=== PATIENT | female | born 1955 | race Caucasian/White ===

== ENCOUNTER 2017-01-22 10:30 | Inpatient (IN) | payer OTHER ==
--- NOTE | ~2017-01-22 | HP ---
History And Physical [place] [id number] [facility] [place]. [address] NAME: OSCAR VACA : 55 STATUS : ADM IN [facility]#: [id number] AGE: 61 ADM/REG DATE : 01/22/17 MR#: [id number] REPORT SERV DATE: 01/22/17 DICTATED BY: TAMMIE KELLY DATE: 01/22/17 REPORT STATUS : Draft TRANSCRIBED BY: MODMoses DATE: 01/22/17 DATE OF ADMISSION: 01/22/2017 PRIMARY CARE PHYSICIAN: Krystyna Ivory NP, in [facility] in [place]. HISTORY OF PRESENT ILLNESS: This is a 61-year-old female, who comes in for abdominal pain. The patient has a lot of family members with respiratory symptoms and got some herself. She was having nonproductive cough, dizziness, chills, and sweats, but no fever. She then felt her ear was stopped off and she went to [facility]. She was diagnosed with bronchitis and it is unclear whether she was given Augmentin because as the patient said that, but in the chart it was Levaquin. The patient took that for about two days, then she started having some nausea, vomiting, and abdominal pain. Sometimes she would vomit, sometimes she would not and abdominal pain was intermittent. This lasted for about two weeks with an average of about once a day. She tried to keep her p.o. intake and has not lost weight. There is no hematemesis or coffee-ground emesis. However, for the last three days, the patient started having some diarrhea, which she cannot control and it was several times during the day. It was watery, brownish, without any melena or hematochezia. However, earlier today, the patient, during one of her bowel movements had wiped her bottom and there was blood. She was then brought to the emergency room. The patient denies any previous abdominal diseases and she was also given steroids in the initial part of her course, which she completed. The patient then got a blood work, which shows a white count of 21 and a CAT scan, which showed acute diverticulitis of the descending and sigmoid colon. No suspicious fluid collection or free air. Aortic stent graft in place. Unchanged from previous studies. Diffuse fatty infiltration of the liver. Benign left renal cyst. The patient was then referred for admission. She denied any near syncopal or syncopal episode. No rashes. No joint pains. She admitted to some weakness and fatigue. REVIEW OF SYSTEMS: The rest of the 14-point review of systems is negative, except as above. PAST MEDICAL HISTORY: Includes diabetes, hypertension, PAD with stents, left breast cancer with a lumpectomy, aortitis, cervical cancer status post hysterectomy in 1988, appendectomy, cholecystectomy, oophorectomy, elective vaginal fistula repair, abdominal aortic aneurysm repair. ALLERGIES: SHE IS ALLERGIC TO MORPHINE, WHICH SHE STOPS BREATHING, BUT CAN TAKE CODEINE. MEDICATIONS: Include albuterol, QVAR, Lopid, Levaquin, Zestril, metformin, multivitamin, and nitroglycerin. FAMILY HISTORY: Mom with throat cancer and cervical cancer. Dad with an WI. Diabetes runs in the family. SOCIAL HISTORY: The patient started smoking at the age of 18, used to smoke more than two packs a day, now she is down to one and half. She denies alcohol or recreational drug use. History And Physical [address] [address] NAME: OSCAR VACA : 55 STATUS : ADM IN [facility]#: [id number] AGE: 61 ADM/REG DATE : 01/22/17 MR#: [id number] REPORT SERV DATE: 01/22/17 DICTATED BY: TAMMIE KELLY DATE: 01/22/17 REPORT STATUS : Draft TRANSCRIBED BY: JOSETTE DATE: 01/22/17 PHYSICAL EXAMINATION: GENERAL: The patient is alert and oriented x3, not in cardiopulmonary distress. VITAL SIGNS: Include a temperature of 97.7, blood pressure of 164/81, pulse rate of 97, respirations of 22, saturating 96% on room air. NECK: She has supple neck. No JVD or carotid bruits. No lymphadenopathy. HEENT: [place] conjunctivae. Anicteric sclerae. No pharyngeal erythema. LUNGS: Clear lungs. No rales. No wheezes. CARDIOVASCULAR: Regular rate and rhythm. No murmurs. ABDOMEN: Positive bowel sounds. Soft. There is some tenderness, left lower quadrant area, but no rebound, guarding, or masses. NEURO: Nonlocalizing. No change the abdominal. LABORATORY DATA: Glucose is 215. The rest of the chemistry is within acceptable limits including lipase. White count 21.8. The rest is within normal limits. Urinalysis is unremarkable. ASSESSMENT: 1. Acute diverticulitis. 2. Hypertension. 3. Diabetes. 4. Peripheral arterial disease with stents. 5. History of abdominal aortic aneurysm repair. 6. Tobacco abuse. PLAN: The patient's signs and symptoms and CT points to an acute diverticulitis. We will check the stool for C. diff as the patient was recently on antibiotics. Check the stool for culture and O and P as well and occult blood. Empirically start Rocephin and Flagyl. Continue home medications, but hold off the inhalers as she was not on that prior to two weeks ago. She has been complaining of some congestion. We will start some decongestants. We will give her hydralazine p.r.n., put her on subcu insulin protocol, hold the metformin for now, and check the hemoglobin A1c. I have counseled her on stopping smoking and we will start nicotine patch if she wants to. This has been explained to her and she agreed and understood the plan. JOSEPH/JOSETTE Tammie Kelly M.D. / [id number] CC: Tammie Kelly M.D.
--- NOTE | ~2017-01-22 | DS ---
Discharge Summary [facility] [address] [place]. [address] NAME: OSCAR VACA : 55 STATUS : DIS IN PAT#: [id number] AGE: 61 ADM/REG DATE : 01/22/17 MR#: [id number] REPORT SERV DATE: 01/25/17 DICTATED BY: TAMMIE KELLY DATE: 01/24/17 REPORT STATUS : Draft TRANSCRIBED BY: MODL DATE: 01/24/17 ADMISSION DATE: 01/22/2017 DISCHARGE DATE: 01/24/2017 FINAL DIAGNOSES: 1. Acute diverticulitis. 2. Peripheral arterial disease with stent. 3. Hypertension. 4. Diabetes. DIAGNOSTIC EXAMS: CAT scan of the abdomen and pelvis showing acute diverticulitis of the descending colon and sigmoid colon. No suspicious fluid collection or free air. Aortic stent graft in place, unchanged from previous study. Diffuse fatty infiltration of the liver is unchanged, benign left renal cyst unchanged from previous study. HOSPITAL COURSE: Please refer to the H and P done by me dated on 01/22/2017. Briefly this is a 61-year-old female who comes in for abdominal pain. The patient has been having some respiratory symptoms which she believes she got from her family members. She was given Augmentin and after 2 days she started having some nausea, vomiting, abdominal pain. She then finally went to the emergency room and a CAT scan showing an acute diverticulitis. I was then told to admit this patient. The patient was given empiric antibiotics which she was able to tolerate and later on she was able to tolerate food as well. The patient several times expressed her wishes to go home and today her vitals are stable, she is not vomiting, not having abdominal pain. I will be discharging her. While she was here though I noticed that she is not on any aspirin. I believe that she should be on that after her acute diverticulitis resolves for her PAD, and she would need further diabetic medications aside from metformin. Her blood sugar has been controlled but she has not been eating well and I do not want to start any new anti-diabetic medication while she is having the acute diverticulitis. She would need followup with her PCP, Krystyna Ivory, once she gets over the acute diverticulitis to start some aspirin and further diabetic control. The patient will now be discharged with the above diagnosis. She will be on the following medications. Flonase 2 sprays per nostril for nasal congestion, Lopid 600 mg twice a day, lisinopril 20 mg a day, multivitamin once a day, nicotine patch 21 mg a day and she continues to smoke, Flagyl 500 mg three times a day for 10 more days, metformin 1000 mg twice a day, nitroglycerin as needed, ProAir as needed, Ceftin 500 mg p.o. b.i.d. for 10 days. This has been explained to the patient. Time spent 35 minutes. She agreed and understood the plan. JOSEPH/JOSETTE Tammie Kelly M.D. / [id number] Discharge Summary [address] [address] NAME: OSCAR VACA : 55 STATUS : DIS IN PAT#: [id number] AGE: 61 ADM/REG DATE : 01/22/17 MR#: [id number] REPORT SERV DATE: 01/25/17 DICTATED BY: TAMMIE KELLY DATE: 01/24/17 REPORT STATUS : Draft TRANSCRIBED BY: JOSETTE DATE: 01/24/17 CC: Lexi Juarez
[2017-01-22 09:45] LABS: BASOPHILS 0.3 %; BASOPHILS ABSOLUTE 0.06 10/3/uL (0.0-0.16); EOSINOPHILS 0.6 %; EOSINOPHILS ABSOLUTE 0.14 10/3/uL (0.0-0.53); ER CBC TAT 0 Hrs 08 Mins; HEMATOCRIT 47.3 % (36.0-48.0); HEMOGLOBIN 15.8 g/dL (12.0-16.0); IMMATURE GRANULOCYTES 0.6 %; IMMATURE GRANULOCYTES ABSOLUTE 0.14 10/3/uL (0.0-0.11); LYMPHOCYTES 18.6 %; LYMPHOCYTES ABSOLUTE 4.04 10/3/uL (0.67-4.30); MANUAL DIFF NO %; MEAN CORPUS HGB CONC 33.4 g/dL (32.0-36.0); MEAN CORPUSCULAR HEMOGLOB 29.6 pg (26.0-34.0); MEAN CORPUSCULAR VOLUME 88.7 fL (80-100); MEAN PLATELET VOLUME 11.7 fL (9.2-13.0); MONOCYTES 4.9 %; MONOCYTES ABSOLUTE 1.07 10/3/uL (0.21-1.20); NEUTROPHILS ABSOLUTE 16.32 10/3/uL (2.02-8.40); PLATELET COUNT 250 10/3/uL (150-400); RED CELL COUNT 5.33 10/6/uL (4.0-5.6); WHITE BLOOD CELLS 21.8 10/3/uL (4.5-10.5)
[2017-01-22 09:56] LABS: A/G RATIO 0.8 (0.7-1.9); ALBUMIN 3.1 G/DL (3.5-5.0); ALKALINE PHOSPHATASE 102 U/L (45-117); CALCIUM, SERUM 9.1 MG/DL (8.5-10.4); CHLORIDE, SERUM 102 MMOL/L (96-112); CO2 (CARBON DIOXIDE) 23 MMOL/L (24-34); CREATININE 0.86 MG/DL (0.55-1.02); GFR AFRICAN AMERICAN 85 ML/MIN (>=60); GFR NON AFRICAN AMERICAN 73 ML/MIN (>=60); GLOBULIN 4.1 G/DL (2.5-4.1); SGOT(AST) 20 U/L (5-40); SGPT(ALT) 35 U/L (5-65); SODIUM, SERUM 137 MMOL/L (135-148); TOTAL BILIRUBIN 0.4 MG/DL (0-1.2); TOTAL PROTEIN 7.2 G/DL (6.0-8.5)
[2017-01-22 10:00] LABS: LACTATE 2.3 MMOL/L (0.3-2.4)
[2017-01-22 10:02] LABS: BUN (BLOOD UREA NITROGEN) 23 MG/DL (6-23); GLUCOSE, SERUM 215 MG/DL (60-99)
[2017-01-22 10:20] LABS: ASCORBIC ACID (UR NOT ORDER) 40 (NEG); BILIRUBIN, URINE NEGATIVE (NEG); ER URINALYSIS TAT 0 Hrs 12 Mins; KETONE, URINE TRACE MG/DL (NEG); LEUKOCYTE ESTERASE(NOT OR NEG (NEG); NITRITE (URINE) NEG (NEG); WBC (NOT ORDERED) (RFLEX) 1 (0-5)
[~2017-01-22 10:30] MED LIST: ACET500CAP PO; GLUCOPHAGE1000 MG PO; IBU-200200 MG PO; PRAV10 PO; PRIN20 PO; PROVHFA INH; SYMBICORT 80/4.1 INH INH
[2017-01-22] MEDS ORDERED: GLUCOPHAGE1000 MG PO (12:35)
[2017-01-22] MEDS ORDERED: ZESTRIL20 MG PO (12:35)
[2017-01-22] MEDS ORDERED: LOPID6 PO (12:36)
[2017-01-22] MEDS ORDERED: THERGRANM PO (12:42)
[2017-01-22] MEDS ORDERED: QVAR80 MCG INH (12:43)
[2017-01-22] MEDS ORDERED: NITROSTAT0.4 MG SL (12:43)
[2017-01-22] MEDS ORDERED: PROVHFA INH (12:47)
[2017-01-22] MEDS ORDERED: LEVAQUIN750 MG PO (12:48)
[2017-01-22 17:03] LABS: INTERNATIONAL NORMAL RATI 1.1 UNITS (-); PARTIAL THROMBO TIME 31.4 SEC (22.5-37.2); PROTIME (NOT ORD) 14.2 SEC (12.0-14.5)
[2017-01-22 17:06] LABS: PHOSPHORUS, SERUM 2.8 MG/DL (2.5-4.5)
[2017-01-23 05:04] LABS: BASOPHILS 0.4 %; BASOPHILS ABSOLUTE 0.06 10/3/uL (0.0-0.16); EOSINOPHILS 2.5 %; EOSINOPHILS ABSOLUTE 0.37 10/3/uL (0.0-0.53); HEMATOCRIT 45.1 % (36.0-48.0); HEMOGLOBIN 15.1 g/dL (12.0-16.0); IMMATURE GRANULOCYTES 0.5 %; IMMATURE GRANULOCYTES ABSOLUTE 0.07 10/3/uL (0.0-0.11); LYMPHOCYTES ABSOLUTE 3.92 10/3/uL (0.67-4.30); MANUAL DIFF NO %; MEAN CORPUS HGB CONC 33.5 g/dL (32.0-36.0); MEAN CORPUSCULAR HEMOGLOB 30.3 pg (26.0-34.0); MEAN CORPUSCULAR VOLUME 90.6 fL (80-100); MEAN PLATELET VOLUME 11.1 fL (9.2-13.0); MONOCYTES 7.9 %; MONOCYTES ABSOLUTE 1.19 10/3/uL (0.21-1.20); NEUTROPHILS 62.7 %; NEUTROPHILS ABSOLUTE 9.49 10/3/uL (2.02-8.40); PLATELET COUNT 206 10/3/uL (150-400); RED CELL COUNT 4.98 10/6/uL (4.0-5.6); WHITE BLOOD CELLS 15.1 10/3/uL (4.5-10.5)
[2017-01-23 05:17] LABS: CALCIUM, SERUM 8.4 MG/DL (8.5-10.4); CHLORIDE, SERUM 106 MMOL/L (96-112); CO2 (CARBON DIOXIDE) 24 MMOL/L (24-34); CREATININE 0.69 MG/DL (0.55-1.02); GFR AFRICAN AMERICAN 109 ML/MIN (>=60); GFR NON AFRICAN AMERICAN 94 ML/MIN (>=60); POTASSIUM, SERUM 4.1 MMOL/L (3.5-5.3); SODIUM, SERUM 140 MMOL/L (135-148)
[2017-01-23 05:21] LABS: BUN (BLOOD UREA NITROGEN) 12 MG/DL (6-23); GLUCOSE, SERUM 168 MG/DL (60-99)
[2017-01-24 06:36] LABS: BASOPHILS 0.6 %; BASOPHILS ABSOLUTE 0.09 10/3/uL (0.0-0.16); EOSINOPHILS 3.2 %; EOSINOPHILS ABSOLUTE 0.51 10/3/uL (0.0-0.53); HEMATOCRIT 43.3 % (36.0-48.0); HEMOGLOBIN 14.3 g/dL (12.0-16.0); IMMATURE GRANULOCYTES 0.4 %; IMMATURE GRANULOCYTES ABSOLUTE 0.06 10/3/uL (0.0-0.11); LYMPHOCYTES 25.5 %; LYMPHOCYTES ABSOLUTE 4.12 10/3/uL (0.67-4.30); MEAN CORPUSCULAR HEMOGLOB 29.6 pg (26.0-34.0); MEAN CORPUSCULAR VOLUME 89.6 fL (80-100); MEAN PLATELET VOLUME 12.2 fL (9.2-13.0); MONOCYTES 8.1 %; MONOCYTES ABSOLUTE 1.31 10/3/uL (0.21-1.20); NEUTROPHILS 62.2 %; NEUTROPHILS ABSOLUTE 10.09 10/3/uL (2.02-8.40); PLATELET COUNT 171 10/3/uL (150-400); RBC DISTRIBUTION WIDTH 14.1 % (12.0-16.0); RED CELL COUNT 4.83 10/6/uL (4.0-5.6); WHITE BLOOD CELLS 16.2 10/3/uL (4.5-10.5)
[2017-01-24 06:40] LABS: MANUAL DIFF NO %
[2017-01-24] MEDS ORDERED: FLONASE NAS (08:50)
[2017-01-24] MEDS ORDERED: HABIT21 TOP (08:51)
[2017-01-24] MEDS ORDERED: MVI PO (08:51)
[2017-01-24] MEDS ORDERED: CEFT5 PO (08:52)
[2017-01-24] MEDS ORDERED: FLAG500TAB PO (08:52)
== END 2017-01-24 10:24 | disposition home or self-care (01) | DRG 379 ==
LOC: ER 10:30 → 5SO 12:49
PROVIDERS: Internal Medicine; Nurse Practitioner Family
DX: K57.33 Diverticulitis of large intestine without perforation or abscess with bleeding (principal); I10 Essential (primary) hypertension; E11.9 Type 2 diabetes mellitus without complications; I73.9 Peripheral vascular disease, unspecified; Z95.820 Peripheral vascular angioplasty status with implants and grafts; Z85.3 Personal history of malignant neoplasm of breast; Z85.41 Personal history of malignant neoplasm of cervix uteri; Z88.5 Allergy status to narcotic agent; F17.210 Nicotine dependence, cigarettes, uncomplicated
CPT/HCPCS: 36415; 36430; 74177; 80048; 80053; 81001; 82270; 82272; 82962; 83036; 83605; 83690; 83735; 84100; 85025; 85610; 85730; 86850; 86900; 86901; 86920; 87045; 87046; 87046-59; 87328; 87329; 87493; 87493-59; 87899; 87899-59; 89055; 93005; 96374; 96375; 99285; A9270-GY; C9113; J1956; Q9967